=== PATIENT | male | born 1960 | race Caucasian/White ===

== ENCOUNTER → 2024-08-21 10:21 | Outpatient (REF) | payer OTHER, SELFPAY | LOC: HWRAD 10:21 | PROVIDERS: ATTENDING PHYSICIAN Allergy & Immunology; FAMILY PHYSICIAN Physician Assistant Medical | DX: J45.50 Severe persistent asthma, uncomplicated (principal); R05.3 Chronic cough; J30.89 Other allergic rhinitis; J30.1 Allergic rhinitis due to pollen | CPT/HCPCS: 71046 ==

== ENCOUNTER 2024-09-11 06:18 | Day surgery (SDC) | payer OTHER, SELFPAY | END 2024-09-11 11:21 | disposition home or self-care (01) | LOC: GI 06:18 | PROVIDERS: ATTENDING PHYSICIAN Internal Medicine | DX: Z12.11 Encounter for screening for malignant neoplasm of colon (principal); K57.30 Diverticulosis of large intestine without perforation or abscess without bleeding | CPT/HCPCS: G0121 ==